=== PATIENT | male | born 1940 | race Caucasian/White ===

== ENCOUNTER 2018-08-12 10:16 | Outpatient (CLI) | payer MEDICARE, OTHER ==
--- NOTE | 2018-08-12 11:41 | RAD ---
ABDOMEN ONE VIEW: History: 77-year-old male with history of renal stones, renal lithiasis. FINDINGS: There is an approximately 0.6 cm diameter rounded opacity overlying the lower pole of the right kidne y, evidence for a right lower pole calculus. There are multiple calcifications within the pelvis, david dence for pelvic phleboliths. No overt ureteral calculus. IMPRESSION: Right lower pole renal calculus. POS: [facility]
--- NOTE | 2018-08-12 12:54 | ULT ---
RENAL ULTRASOUND: History: Nephrolithiasis. Renal calculi. Comparison: None. FINDINGS: Bilaterally, the renal cortex has a normal echotexture. Right kidney measures 10.0 x 5.6 x 5.8 cm. Le ft kidney measures 10.8 x 6.4 x 5.2 cm. Echogenic focus in the left renal cortex measures 0.6 cm, com patible with nephrolithiasis. There is an anechoic focus in the mid to lower portion of the left harper l pelvis compatible with a 1 cm cyst. Bilaterally, no hydronephrosis. Urinary bladder is unremarkable . IMPRESSION: Nonobstructing calcification of the left renal cortex. Bilaterally, no hydronephrosis. POS: [facility]
== END 2018-08-12 10:17 | disposition home or self-care (01) ==
LOC: BICULT 10:16
PROVIDERS: ATTEND Urology
DX: N20.0 Calculus of kidney (principal); N40.0 Benign prostatic hyperplasia without lower urinary tract symptoms; R35.0 Frequency of micturition; Z87.448 Personal history of other diseases of urinary system; N28.89 Other specified disorders of kidney and ureter
CPT/HCPCS: 36415; 74018; 76770; 80048; 81001; 87086

== ENCOUNTER 2018-10-09 13:08 | Outpatient (CLI) | payer MEDICARE, OTHER ==
--- NOTE | 2018-10-09 15:08 | RAD ---
TWO VIEWS CHEST: Date: 10-09-18 Comparison: 02-12-17, 01-22-16 History: Dyspnea. FINDINGS: Heart and mediastinal contours are unchanged when compared to study performed 01-22-16. There is mild i ncreased linear interstitial density. There is no pneumothorax or pleural fluid and no focal consolid ation or alveolar edema. There is multilevel mid thoracic spine disc space narrowing and anterior ost eophyte formation. IMPRESSION: Chronic findings as detailed above. No acute findings are seen. POS: [facility]
== END 2018-10-09 13:09 | disposition home or self-care (01) ==
LOC: RAD 13:08
PROVIDERS: ATTEND Internal Medicine Pulmonary Disease
DX: R06.00 Dyspnea, unspecified (principal); J98.4 Other disorders of lung; M51.34 Other intervertebral disc degeneration, thoracic region; M25.78 Osteophyte, vertebrae
CPT/HCPCS: 71046

== ENCOUNTER 2019-02-10 10:31 | Outpatient (CLI) | payer MEDICARE, OTHER ==
--- NOTE | 2019-02-10 11:27 | ULT ---
BILATERAL RENAL ULTRASOUND: HISTORY: Urinary tract calculi, renal lithiasis. FINDINGS: Comparison is made with the exam of 08/12/2018. The right kidney measures 10.3 cm in length and the left kidney measures 11 cm in length. No hydrone phrosis is seen on either side. There are left parapelvic cysts measuring up to 1.2 cm in the inferi or aspect, stable since the last exam. No shadowing calculi are seen in the kidneys. The urinary bl adder is unremarkable. IMPRESSION: 1. No evidence of high-grade urinary tract obstruction. 2. Left renal cyst. POS: [facility]
== END 2019-02-10 10:32 | disposition home or self-care (01) ==
LOC: BICULT 10:31
PROVIDERS: ATTEND Urology
DX: N20.0 Calculus of kidney (principal); N40.0 Benign prostatic hyperplasia without lower urinary tract symptoms; R31.9 Hematuria, unspecified; N28.1 Cyst of kidney, acquired; Z87.448 Personal history of other diseases of urinary system
CPT/HCPCS: 76770; 81001; 87086

== ENCOUNTER 2019-02-17 08:11 | Outpatient (CLI) | payer MEDICARE, OTHER ==
--- NOTE | 2019-02-17 09:46 | RAD ---
SUPINE ABDOMEN: HISTORY: Renal lithiasis. COMPARISON: 08/12/2018. The rounded calcification overlying the lower pole of the right kidney is again seen. Bowel content obscures both renal outlines and small calculi could be obscured. Phleboliths in the pelvis appear s table. Degenerative changes at the left hip again noted with the right hip prosthesis again noted. IMPRESSION: Calculus overlying the lower pole of the right kidney again noted. Prominent bowel content obscures both urinary tracts. POS: [facility]
== END 2019-02-17 08:12 | disposition home or self-care (01) ==
LOC: RAD 08:11
PROVIDERS: ATTEND Urology
DX: N20.0 Calculus of kidney (principal)
CPT/HCPCS: 74018

== ENCOUNTER 2019-03-04 09:12 | Outpatient (CLI) | payer MEDICARE, OTHER ==
--- NOTE | 2019-03-04 10:17 | CT ---
CT STONE PROTOCOL: HISTORY:Microhematuria. BPH. COMPARISON: 10/06/2015 DISCLAIMER: Absence of oral and IV contrast reduces the sensitivity of the exam particularly for the evaluation of solid organs and bowel. FINDINGS: The lung bases are clear. No free air or free fluid is seen in the abdomen or pelvis. No calcified ga llstones are noted. There is a small hiatal hernia. Calcified granulomas in the spleen and a 5 cm lobulated cyst in the p osterior segment of the right lobe of the liver are stable. Appendix is normal. There is colonic diverticulosis without diverticulitis. The 8 mm calculus in the inferior pole of the right kidney is stable. No calculi are seen in the left kidney, either ureter or the urinary bladder. No hydroureteronephrosis is seen in either side. Evaluation of the pelvis is limited due to streak artifact from patient's right hip arthroplasty. There are vascular calcifications without evidence of aneurysmal dilatation of the abdominal aorta. T here are degenerative changes in the spine. There is a fat-containing left inguinal hernia IMPRESSION: 1. Nonobstructing right renal calculus 2. Small hiatal hernia 3. Calcified splenic granulomata 4. Colonic diverticulosis 5. Hepatic cyst.
== END 2019-03-04 09:13 | disposition home or self-care (01) ==
LOC: BICCT 09:12
PROVIDERS: ATTEND Urology
DX: N40.1 Benign prostatic hyperplasia with lower urinary tract symptoms (principal); R31.29 Other microscopic hematuria; Z79.01 Long term (current) use of anticoagulants; K46.9 Unspecified abdominal hernia without obstruction or gangrene; L92.9 Granulomatous disorder of the skin and subcutaneous tissue, unspecified; K57.30 Diverticulosis of large intestine without perforation or abscess without bleeding; N20.0 Calculus of kidney; K76.89 Other specified diseases of liver
CPT/HCPCS: 74176

== ENCOUNTER 2019-04-08 10:34 | Outpatient (CLI) | payer MEDICARE, OTHER ==
--- NOTE | 2019-04-08 13:28 | ULT ---
EXAM: THYROID ULTRASOUND: 04/08/19 HISTORY: Mass noted on thyroid screening. COMPARISON: None. TECHNIQUE: Sagittal and transverse imaging of the thyroid gland is performed. FINDINGS: Right thyroid lobe measures 3.8 x 1.4 x 2.7 cm. the left thyroid lobe measures 1.7 x 2.3 x 3.1 cm. Th yroid isthmus measures 0.6 cm. There is a solitary hypoechoic nodule in the right thyroid lobe measu ring 0.6 x 0.9 x 0.8 cm. IMPRESSION: Hypoechoic nodule in the right thyroid lobe. TI-RADS level TR4. Follow-up imaging is one year is qi mmended. POS: [facility]
== END 2019-04-08 10:35 | disposition home or self-care (01) ==
LOC: BICULT 10:34
PROVIDERS: ATTEND Family Medicine
DX: E04.1 Nontoxic single thyroid nodule (principal)
CPT/HCPCS: 76536

== ENCOUNTER 2019-08-13 12:11 | Outpatient (CLI) | payer MEDICARE, OTHER ==
--- NOTE | 2019-08-13 13:32 | ULT ---
Exam: Bilateral renal ultrasound HISTORY: Nonischemic kidney disease COMPARISON: 02/10/2019 FINDINGS: Right kidney: Normal cortical echotexture. No hydronephrosis. Right kidney measurements: 10.0 x 5.1 x 4.9 cm. Left kidney: Normal cortical echotexture. No hydronephrosis 1 cm parapelvic cyst in the lower pole. Left kidney measurements 10.0 x 4.9 x 5.9 cm. Urinary bladder: Normal mucosa. IMPRESSION: No hydronephrosis.
== END 2019-08-13 12:12 | disposition home or self-care (01) ==
LOC: BICULT 12:11
PROVIDERS: ATTEND Internal Medicine Nephrology
DX: N18.3 Chronic kidney disease, stage 3 (moderate) (principal)
CPT/HCPCS: 76770

== ENCOUNTER 2019-10-07 08:20 | Outpatient (CLI) | payer MEDICARE, OTHER ==
--- NOTE | 2019-10-07 09:31 | RAD ---
KUB: Date: 10/07/19 HISTORY: Renal calculi. COMPARISON: 02/17/19 exam. FINDINGS: The bowel gas pattern appears nonobstructive. Calculus overlying the lower pole region of the right k idney is again identified. Faint calcifications are seen in the left upper quadrant of the abdomen. I do not see a definitive left-sided calculus. The calcifications within the pelvis appear unchanged. IMPRESSION: Stable lower pole right renal calculus. POS: [facility]
== END 2019-10-07 08:21 | disposition home or self-care (01) ==
LOC: BICRAD 08:20
PROVIDERS: ATTEND Urology
DX: N20.0 Calculus of kidney (principal); N40.0 Benign prostatic hyperplasia without lower urinary tract symptoms; R35.0 Frequency of micturition
CPT/HCPCS: 36415; 74018; 80053; 80061; 81001; 85025

== ENCOUNTER 2020-10-05 14:12 | Outpatient (CLI) | payer MEDICARE, OTHER ==
--- NOTE | 2020-10-05 15:32 | ULT ---
Bilateral renal ultrasound CLINICAL INDICATION: Renal calculi. COMPARISON: 08/13/[address] abdomen on 03/04/2019 FINDINGS: Right kidney: A nonshadowing echogenic focus measuring 1.1 cm is seen in the midportion right kidney. This may represent a prominent vessel. This cannot be confirmed to represent a calculus. This echogenic focus was not seen on prior renal sonogram. An inferior pole right renal calculus was seen on prior CT exam. No renal mass, hydronephrosis, or perinephric fluid collection is seen. The right kidney measures 10 cm x 6.5 cm. Left kidney: Several tiny echogenic foci are seen scattered within the left kidney which do not demon strate posterior shadowing and are likely related to prominent vessels as opposed to a calculi. An approximately 1.2 cm anechoic structure seen midportion left kidney which demonstrates posterior acou stic enhancement and likely represents a small cyst. No solid renal mass or hydronephrosis is seen on the left. No perinephric fluid collection is identified.The left kidney measures 11.1 cm x 5.3 cm. Urinary bladder: Incompletely distended with urinary bladder volume of 84 mL. Urinary bladder has a g rossly normal sonographic appearance for degree of distention. IMPRESSION: 1. No evidence of hydronephrosis. 2. Small left renal cyst. 3. Echogenic foci in each kidney which do not demonstrate posterior shadowing to suggest a renal calc ulus.
--- NOTE | 2020-10-05 15:53 | RAD ---
Abdomen one view HISTORY: Kidney stone. COMPARISON: 10/07/2019. FINDINGS: Bowel gas pattern is nonspecific. Renal outlines predominantly obscured by gas and stool. Projecting over the inferior pole of the right kidney, a 0.7 cm rounded calcification is unchanged in position. Phleboliths projecting over the pelvis are stable. IMPRESSION : Stable radiographic appearance of the right inferior pole renal calculus.
== END 2020-10-05 14:13 | disposition home or self-care (01) ==
LOC: BICULT 14:12
PROVIDERS: ATTEND Urology
DX: N20.0 Calculus of kidney (principal); N28.1 Cyst of kidney, acquired
CPT/HCPCS: 74018; 76770

== ENCOUNTER 2020-11-30 11:44 | Outpatient (CLI) | payer MEDICARE, OTHER ==
--- NOTE | 2020-11-30 12:24 | RAD ---
XR Chest Pa Lat STANDARD History: Dyspnea Comparison: Radiograph 2018 Findings: Lungs are clear. No pneumothorax or effusion. Heart size upper limits of normal. No acute o sseous abnormality. Impression: No acute intrathoracic abnormality.
== END 2020-11-30 11:45 | disposition home or self-care (01) ==
LOC: BICRAD 11:44
PROVIDERS: ATTEND Internal Medicine Pulmonary Disease
DX: R06.00 Dyspnea, unspecified (principal)
CPT/HCPCS: 71046

== ENCOUNTER 2021-06-13 10:20 | Outpatient (CLI) | payer MEDICARE, OTHER | END 2021-06-13 10:21 | disposition home or self-care (01) | LOC: BICRAD 10:20 | PROVIDERS: ATTEND Internal Medicine Pulmonary Disease | DX: R06.00 Dyspnea, unspecified (principal); I70.0 Atherosclerosis of aorta | CPT/HCPCS: 71046 ==

== ENCOUNTER 2021-09-30 08:59 | Outpatient (CLI) | payer MEDICARE, OTHER | END 2021-09-30 09:00 | disposition home or self-care (01) | LOC: RAD 08:59 | PROVIDERS: ATTEND Internal Medicine Pulmonary Disease | DX: R06.00 Dyspnea, unspecified (principal) | CPT/HCPCS: 71046 ==

== ENCOUNTER 2021-10-06 10:50 | Outpatient (CLI) | payer MEDICARE, OTHER | END 2021-10-06 10:51 | disposition home or self-care (01) | LOC: BICRAD 10:50 | PROVIDERS: ATTEND Urology | DX: N20.0 Calculus of kidney (principal); K31.89 Other diseases of stomach and duodenum | CPT/HCPCS: 74018 ==

== ENCOUNTER 2022-03-17 11:38 | Outpatient (CLI) | payer MEDICARE, OTHER ==
[2022-03-17 12:56] LABS: Bilirubin Neg (Negative); Blood, Urine 25 (Negative); Clarity Clear (Clear); Glucose, Urine (Dipstick) Normal (Negative); Ketone, Urine Negative (Negative); Leukocyte Negative (Negative); Nitrite Negative (Negative); Protein, Urine (Dipstick) 30 mg/dl (Neg-Trace); Specific Gravity, Urine 1.015 (1.002-1.036); Urobilinogen Normal mg/dL (Less than 2)
[2022-03-17 13:03] LABS: Bacteria/HPF Rare-Few HPF (None Seen); Mucous/LPF 3+ LPF (<2+); Squamous Epithelial 0-3 HPF (0-3); WBC/HPF 0-3 HPF (0-3)
[2022-03-17 13:06] LABS: Hemoglobin 15.8 g/dL (13.5-17.5); Mean Corpuscular HGB CONC 33.5 g/dL (32.0-36.0); Mean Corpuscular Hemoglobin 30.9 pg (27.0-33.0); Platelet Count 216 10x3/uL (150-450); RBC Distribution Width 14.3 % (11.5-14.5); Red Blood Cell (RBC) Count 5.12 10x6/uL (4.32-5.72)
[2022-03-17 13:39] LABS: Anion Gap 15 mmol/L (10-20); BUN (Urea Nitrogen) 18 mg/dL (8.4-25.7); Calc. Creatinine Clearance 0 mL/min (70-130); Calcium 9.1 mg/dL (7.8-10.44); Carbon Dioxide 26 mmol/L (23-31); Chloride 105 mmol/L (98-107); Glucose 105 mg/dL (83-110); INR-International Normal Ratio 1.2; PTT 30.2 sec (22.0-33.0); Potassium 3.6 mmol/L (3.5-5.1); Prothrombin Time 12.8 sec (9.5-12.1); Sodium 142 mmol/L (136-145)
[2022-03-18 02:04] LABS: SARS-CoV-2 PCR by NAA Not Detected (NotDetected)
== END 2022-03-17 11:39 | disposition home or self-care (01) ==
LOC: LABBT 11:38
PROVIDERS: ATTEND Urology
DX: Z01.818 Encounter for other preprocedural examination (principal); N20.0 Calculus of kidney; Z87.448 Personal history of other diseases of urinary system; I48.0 Paroxysmal atrial fibrillation; E66.9 Obesity, unspecified; R80.8 Other proteinuria; N40.1 Benign prostatic hyperplasia with lower urinary tract symptoms; Z20.822 Contact with and (suspected) exposure to COVID-19
CPT/HCPCS: 80048; 81001; 85027; 85610; 85730; 87086; 93005; U0003; U0005; 93010

== ENCOUNTER 2022-03-22 06:47 | Day surgery (SDC) | payer MEDICARE, OTHER ==
[2022-03-21 16:42] VITALS: BMI 33.4
[2022-03-22] MEDS ORDERED: HYDROmorphone 2 MG/ML VIAL ONE (06:54)
[2022-03-22] MEDS ORDERED: Midazolam HCl 2 mg/2 ml Vial ONE (06:54)
[2022-03-22] MEDS ORDERED: Iopamidol 30 ML ONE (07:20)
[2022-03-22] MEDS ORDERED: SUGAMMADEX SODIUM 200 MG/2 ML VIAL ONE (07:24)
[2022-03-22] MEDS ORDERED: Levofloxacin 500 mg/D5W 100 ml Premix Bag ONE (07:27)
[2022-03-22] MEDS ORDERED: PROPOFOL 200 MG/20 ML VIAL ONE (07:39)
[2022-03-22] MEDS ORDERED: ePHEDrine 50 MG/ML VIAL ONE (07:39)
[2022-03-22] MEDS ORDERED: Ondansetron PF 4 MG/2 ML Vial ONE (07:39)
[2022-03-22] MEDS ORDERED: PHENYLEPHRINE-NS 100 MCG/ML 10 ML SYRINGE ONE (07:39)
[2022-03-22] MEDS ORDERED: Rocuronium Bromide 10 MG/ML (10ML VIAL) ONE (07:39)
[2022-03-22] MEDS ORDERED: Dexamethasone 20 MG/5 ML VIAL ONE (07:39)
[2022-03-22] MEDS ORDERED: Lidocaine 1% PF 5 ML VIAL ONE (07:39)
[2022-03-22] MEDS ORDERED: Phenazopyridine HCl 100 MG TAB ONE (09:04)
[2022-03-22] MEDS ORDERED: Oxybutynin 5 MG TAB ONE (09:04)
[2022-03-22] MEDS ORDERED: Hyoscyamine Sulfate SL 0.125 mg Tablet ONE ×2 (09:38)
[2022-03-22] MEDS ORDERED: HYDROcodone/Acetaminophen 5/325 mg Tablet ONE (11:20)
== END 2022-03-22 12:50 | disposition home or self-care (01) ==
LOC: SDC 06:47
PROVIDERS: ATTEND Urology
PROC: 0TC38ZZ Extirpation of Matter from Right Kidney Pelvis, Via Natural or Artificial Opening Endoscopic (ICD-10-PCS; principal; 2022-03-22)
PROC: 0T768DZ Dilation of Right Ureter with Intraluminal Device, Via Natural or Artificial Opening Endoscopic (ICD-10-PCS; 2022-03-22)
DX: N20.0 Calculus of kidney (principal); N40.0 Benign prostatic hyperplasia without lower urinary tract symptoms; N35.912 Unspecified bulbous urethral stricture, male; E78.5 Hyperlipidemia, unspecified; I10 Essential (primary) hypertension; I48.91 Unspecified atrial fibrillation; E66.01 Morbid (severe) obesity due to excess calories; Z68.33 Body mass index [BMI] 33.0-33.9, adult; Z87.891 Personal history of nicotine dependence; Z79.01 Long term (current) use of anticoagulants; Z79.899 Other long term (current) drug therapy; Z88.2 Allergy status to sulfonamides
CPT/HCPCS: 74018; 74420; C2617; J1100; J1170; J1956; J2250; J2405; J2704; J3490; Q9967

== ENCOUNTER 2022-07-03 06:57 | Outpatient (CLI) | payer MEDICARE, OTHER | END 2022-07-03 06:58 | disposition home or self-care (01) | LOC: BICULT 06:57 | PROVIDERS: ATTEND Urology | DX: N20.0 Calculus of kidney (principal); N28.89 Other specified disorders of kidney and ureter | CPT/HCPCS: 36415; 74018; 76770; 80048; 81001; 87086 ==

== ENCOUNTER 2022-08-25 10:46 | Outpatient (CLI) | payer MEDICARE, OTHER ==
[2022-08-25 12:20] LABS: Bilirubin Neg (Negative); Blood, Urine 150 (Negative); Clarity Clear (Clear); Glucose, Urine (Dipstick) Normal (Negative); Ketone, Urine Negative (Negative); Leukocyte Negative (Negative); Nitrite Negative (Negative); Protein, Urine (Dipstick) 30 mg/dl (Neg-Trace); Urobilinogen Normal mg/dL (Less than 2)
[2022-08-25 12:21] LABS: Hemoglobin 15.5 g/dL (13.5-17.5); Mean Corpuscular HGB CONC 34.3 g/dL (32.0-36.0); Mean Corpuscular Hemoglobin 31.2 pg (27.0-33.0); Mean Corpuscular Volume 90.9 fl (81.2-95.1); Mean Platelet Volume 10.1 fl (7.4-10.4); Platelet Count 229 10x3/uL (150-450); RBC Distribution Width 13.9 % (11.5-14.5); Red Blood Cell (RBC) Count 4.97 10x6/uL (4.32-5.72); White Blood Cell (WBC) Count 7.2 10x3/uL (3.5-10.5)
[2022-08-25 12:42] LABS: Anion Gap 15 mmol/L (10-20); BUN (Urea Nitrogen) 23 mg/dL (8.4-25.7); Calc. Creatinine Clearance 0 mL/min (70-130); Calcium 8.9 mg/dL (7.8-10.44); Carbon Dioxide 22 mmol/L (23-31); Chloride 106 mmol/L (98-107); Estimated GFR 66; Glucose 105 mg/dL (83-110); Potassium 3.9 mmol/L (3.5-5.1); Sodium 139 mmol/L (136-145)
[2022-08-25 12:43] LABS: INR-International Normal Ratio 1.3; PTT 30.8 sec (22.0-33.0); Prothrombin Time 13.5 sec (9.5-12.1)
[2022-08-25 12:59] LABS: Squamous Epithelial 0-3 HPF (0-3); WBC/HPF 0-3 HPF (0-3)
[2022-08-25 13:00] LABS: Bacteria/HPF None Seen HPF (None Seen)
== END 2022-08-25 10:47 | disposition home or self-care (01) ==
LOC: LABBT 10:46
PROVIDERS: ATTEND Urology
DX: Z01.812 Encounter for preprocedural laboratory examination (principal); N40.1 Benign prostatic hyperplasia with lower urinary tract symptoms; N35.816 Other urethral stricture, male, overlapping sites; N20.0 Calculus of kidney; I48.0 Paroxysmal atrial fibrillation; E66.9 Obesity, unspecified; Z87.448 Personal history of other diseases of urinary system
CPT/HCPCS: 80048; 81001; 85027; 85610; 85730; 87086

== ENCOUNTER 2022-10-10 13:18 | Outpatient (CLI) | payer MEDICARE, OTHER | END 2022-10-10 13:19 | disposition home or self-care (01) | LOC: RAD 13:18 | PROVIDERS: ATTEND Internal Medicine | DX: R06.00 Dyspnea, unspecified (principal) | CPT/HCPCS: 71046 ==

== ENCOUNTER 2022-11-28 17:30 | Outpatient (CLI) | payer MEDICARE, OTHER | END 2022-11-28 17:31 | disposition home or self-care (01) | LOC: SLEEPLAB 17:30 | PROVIDERS: ATTEND Internal Medicine | DX: R06.01 Orthopnea (principal); R06.83 Snoring; G47.33 Obstructive sleep apnea (adult) (pediatric); G47.31 Primary central sleep apnea | CPT/HCPCS: 95800 ==

== ENCOUNTER → 2023-01-26 | Outpatient (CLI) | payer MEDICARE, OTHER | LOC: SLEEPLAB 19:00 | PROVIDERS: ATTEND Internal Medicine | DX: G47.33 Obstructive sleep apnea (adult) (pediatric) (principal); E66.9 Obesity, unspecified; K21.9 Gastro-esophageal reflux disease without esophagitis; G47.31 Primary central sleep apnea; Z68.35 Body mass index [BMI] 35.0-35.9, adult | CPT/HCPCS: 95811 ==

== ENCOUNTER 2023-08-18 11:56 | Emergency (ER) | payer MEDICARE, OTHER ==
[2023-08-18] MEDS ORDERED: predniSONE 20 MG TAB ONE (14:09)
[2023-08-18] MEDS ORDERED: Ketorolac Tromethamine 30 MG/ML VIAL ONE (14:09)
[2023-08-18] MEDS ORDERED: HYDROcodone/Acetaminophen 5/325 mg Tablet ONE (14:10)
[2023-08-18 14:36] LABS: Bacteria/HPF None Seen HPF (None Seen); Bilirubin Negative (Negative); Blood, Urine 1+ (Negative); CAUTI Indications for Culture Pelvic or flank pain; Clarity Clear (Clear); Glucose, Urine (Dipstick) Normal (Negative); Ketone, Urine Negative (Negative); Leukocyte Negative Leu/uL (Negative); Nitrite Negative (Negative); Protein, Urine (Dipstick) 100 mg/dL (Neg-Trace); RBC/HPF 0-3 HPF (0-3); Specific Gravity, Urine 1.035 (1.002-1.036); Squamous Epithelial 0-3 HPF (0-3); Urobilinogen Normal mg/dL (Less than 2); WBC/HPF 0-3 HPF (0-3); pH, Urine 5.5 (5.0-9.0)
[2023-08-18 14:37] LABS: Urine Culture Reflex No No
== END 2023-08-18 15:48 | disposition home or self-care (01) ==
LOC: ERS 11:56
DX: M25.552 Pain in left hip (principal); I48.91 Unspecified atrial fibrillation; E78.00 Pure hypercholesterolemia, unspecified; I10 Essential (primary) hypertension; Z87.891 Personal history of nicotine dependence
CPT/HCPCS: 81001; J1885; J7512

== ENCOUNTER 2023-09-28 10:42 | Outpatient (CLI) | payer MEDICARE, OTHER ==
[2023-09-28 13:10] LABS: #Basophils 0.1 10x3/uL (0.0-0.2); #Eosinphils 0.2 10x3/uL (0.0-0.5); #Monocytes 0.7 10x3/uL (0.0-1.1); #Neutrophils 4.3 10x3/uL (1.5-8.4); %Basophils 0.7 % (0.0-2.0); %Eosinophils 2.3 % (0.0-6.0); %Lymphocytes 23.9 % (18.0-47.0); %Monocytes 10.2 % (0.0-10.0); %Neutrophils 62.6 % (40.0-75.0); Hematocrit 48.1 % (38.8-50.0); Hemoglobin 16.3 g/dL (13.5-17.5); Mean Corpuscular HGB CONC 33.9 g/dL (32.0-36.0); Mean Corpuscular Hemoglobin 30.9 pg (27.0-33.0); Mean Corpuscular Volume 91.1 fl (81.2-95.1); Mean Platelet Volume 10.5 fl (7.4-10.4); Platelet Count 243 10x3/uL (150-450); RBC Distribution Width 14.5 % (11.5-14.5); Red Blood Cell (RBC) Count 5.28 10x6/uL (4.32-5.72); White Blood Cell (WBC) Count 6.9 10x3/uL (3.5-10.5)
[2023-09-28 13:14] LABS: INR-International Normal Ratio 1.4; Prothrombin Time 14.8 sec (9.5-12.1)
[2023-09-28 13:26] LABS: Anion Gap 20 mmol/L (10-20); BUN (Urea Nitrogen) 19 mg/dL (8.4-25.7); Calc. Creatinine Clearance 0 mL/min (70-130); Calcium 9.5 mg/dL (7.8-10.44); Carbon Dioxide 22 mmol/L (23-31); Chloride 104 mmol/L (98-107); Estimated GFR 68; Glucose 106 mg/dL (83-110); Sodium 142 mmol/L (136-145)
== END 2023-09-28 10:43 | disposition home or self-care (01) ==
LOC: LABBT 10:42
PROVIDERS: ATTEND Orthopaedic Surgery
DX: Z01.812 Encounter for preprocedural laboratory examination (principal); M16.12 Unilateral primary osteoarthritis, left hip
CPT/HCPCS: 80048; 85025; 85610; 87081

== ENCOUNTER 2023-11-14 20:19 | Inpatient (IN) | payer MEDICARE, OTHER ==
[~2023-11-14 20:19] MED LIST: Iopamidol-370 76% 500 ML MDV (1 ML CHARGE) ONE
[2023-11-14 20:58] LABS: #Monocytes 1.1 thou/uL (0.11-0.59); #Neutrophils 15.3 thou/uL (1.40-6.50); %Basophils 0.2 % (0.0-1.0); %Eosinophils 0.1 % (0.0-10.0); %Lymphocytes 5.6 % (21.0-51.0); %Monocytes 6.4 % (0.0-10.0); Hematocrit 42.4 % (42.0-52.0); Hemoglobin 13.9 g/dL (14.0-18.0); Mean Corpuscular HGB CONC 32.8 g/dL (32.0-36.0); Mean Corpuscular Hemoglobin 30.2 pg (27.0-31.0); Mean Platelet Volume 9.5 fL (7.4-10.4); Platelet Count 252 10x3/uL (130-400); RBC Distribution Width 14.9 % (11.5-14.5); Red Blood Cell (RBC) Count 4.61 mill/uL (4.70-6.10); White Blood Cell (WBC) Count 17.6 10x3/uL (4.8-10.8)
[2023-11-14 21:25] LABS: ALT (SGPT) 14 U/L (8-55); AST (SGOT) 12 U/L (5-34); Albumin 3.9 g/dL (3.4-4.8); Alkaline Phosphatase 52 U/L (40-110); Anion Gap 14 mmol/L (10-20); BUN (Urea Nitrogen) 21 mg/dL (8.4-25.7); Bilirubin, Total 1.1 mg/dL (0.2-1.2); Calc. Creatinine Clearance 0 mL/min (70-130); Calcium 9.2 mg/dL (7.8-10.44); Carbon Dioxide 25 mmol/L (23-31); Chloride 102 mmol/L (98-107); Estimated GFR 61; Globulin 3.5 g/dL (2.4-3.5); Glucose 149 mg/dL (83-110); Lipase 6 U/L (8-78); Potassium 3.4 mmol/L (3.5-5.1); Protein, Total 7.4 g/dL (5.8-8.1); Sodium 138 mmol/L (136-145)
[2023-11-14 21:56] LABS: Bacteria/HPF 4+ HPF (None Seen); Bilirubin Negative (Negative); Blood, Urine 2+ (Negative); Clarity Turbid (Clear); Glucose, Urine (Dipstick) Normal (Negative); Ketone, Urine Negative (Negative); Leukocyte 500 Leu/uL (Negative); Nitrite 2+ (Negative); Protein, Urine (Dipstick) 50 mg/dL (Neg-Trace); Specific Gravity, Urine 1.026 (1.002-1.036); Squamous Epithelial 0-3 HPF (0-3); Urobilinogen Normal mg/dL (Less than 2); WBC/HPF Greater than 50 HPF (0-3); pH, Urine 5.5 (5.0-9.0)
[2023-11-14 21:58] LABS: Urine Culture Reflex Yes Yes
[2023-11-14] MEDS ORDERED: Cefepime 2 GM VIAL ONE (22:27)
[2023-11-14] MEDS ORDERED: Sodium Chloride 0.9% 100 ML ONE (22:28)
[2023-11-15] MEDS ORDERED: HYDROcodone/Acetaminophen 5/325 mg Tablet PO PRN ×2 (00:11)
[2023-11-15] MEDS ORDERED: Acetaminophen 650 MG Suppository PR PRN (00:11)
[2023-11-15] MEDS ORDERED: Acetaminophen 325 MG TAB PO PRN (00:11)
[2023-11-15] MEDS ORDERED: HYDROcodone/Acetaminophen 5/325 mg Tablet PO SCH (00:15)
[2023-11-15 01:29] LABS: Lactic Acid 1.3 mmol/L (0.5-2.2)
[2023-11-15] MEDS: Sodium Chloride 0.9% 1,000 ML IV SCH ×3 (02:43→15:07)
[2023-11-15 04:06] LABS: #Neutrophils 13.2 thou/uL (1.40-6.50); %Basophils 0.2 % (0.0-1.0); %Eosinophils 0.1 % (0.0-10.0); %Lymphocytes 6.9 % (21.0-51.0); %Monocytes 6.3 % (0.0-10.0); %Neutrophils 85.9 % (42.0-75.0); Hematocrit 38.8 % (42.0-52.0); Hemoglobin 12.7 g/dL (14.0-18.0); Mean Corpuscular HGB CONC 32.7 g/dL (32.0-36.0); Mean Corpuscular Hemoglobin 30.2 pg (27.0-31.0); Mean Corpuscular Volume 92.4 fl (78.0-98.0); Mean Platelet Volume 10.1 fL (7.4-10.4); Platelet Count 192 10x3/uL (130-400); RBC Distribution Width 14.9 % (11.5-14.5); White Blood Cell (WBC) Count 15.4 10x3/uL (4.8-10.8)
[2023-11-15 04:29] LABS: ALT (SGPT) 11 U/L (8-55); AST (SGOT) 15 U/L (5-34); Albumin 3.4 g/dL (3.4-4.8); Alkaline Phosphatase 46 U/L (40-110); Anion Gap 14 mmol/L (10-20); BUN (Urea Nitrogen) 18 mg/dL (8.4-25.7); Bilirubin, Total 1.5 mg/dL (0.2-1.2); Calc. Creatinine Clearance 0 mL/min (70-130); Calcium 8.6 mg/dL (7.8-10.44); Carbon Dioxide 24 mmol/L (23-31); Chloride 104 mmol/L (98-107); Estimated GFR 69; Globulin 3.3 g/dL (2.4-3.5); Glucose 127 mg/dL (83-110); Potassium 3.4 mmol/L (3.5-5.1); Protein, Total 6.7 g/dL (5.8-8.1); Sodium 139 mmol/L (136-145)
[2023-11-15] MEDS: Mometasone 100 MCG/Formoterol 5 MCG 120 PUFF INHALER INH SCH ×2 (07:16→18:50)
[2023-11-15] MEDS ORDERED: Enoxaparin 40 MG (0.4 mL) SYRINGE SC SCH (09:00)
[2023-11-15 10:10] VITALS: BMI 33.2
[2023-11-15] MEDS: Hydrochlorothiazide 25 MG TAB PO SCH (11:12)
[2023-11-15] MEDS: cefTRIAXone\\ROCEPHIN 1 GM in Sodium Chloride 0.9% 100 ML IVPB SCH (11:12)
[2023-11-15] MEDS: Atorvastatin Calcium 10 MG TAB PO SCH (21:23)
[2023-11-15] MEDS: Rivaroxaban 10 MG TAB PO SCH (21:23)
[2023-11-16] MEDS: Sodium Chloride 0.9% 1,000 ML IV SCH ×2 (00:14→09:43)
[2023-11-16] MEDS: Mometasone 100 MCG/Formoterol 5 MCG 120 PUFF INHALER INH SCH ×2 (06:59→18:51)
[2023-11-16 08:31] LABS: #Eosinphils 0.2 thou/uL (0.0-0.7); #Monocytes 1.1 thou/uL (0.11-0.59); #Neutrophils 9.9 thou/uL (1.40-6.50); %Basophils 0.2 % (0.0-1.0); %Eosinophils 1.3 % (0.0-10.0); %Lymphocytes 12.3 % (21.0-51.0); %Monocytes 8.2 % (0.0-10.0); %Neutrophils 77.4 % (42.0-75.0); Hematocrit 42.5 % (42.0-52.0); Hemoglobin 13.7 g/dL (14.0-18.0); Mean Corpuscular HGB CONC 32.2 g/dL (32.0-36.0); Mean Platelet Volume 9.9 fL (7.4-10.4); Platelet Count 220 10x3/uL (130-400); RBC Distribution Width 14.8 % (11.5-14.5); Red Blood Cell (RBC) Count 4.57 mill/uL (4.70-6.10); White Blood Cell (WBC) Count 12.9 10x3/uL (4.8-10.8)
[2023-11-16 08:53] LABS: Anion Gap 14 mmol/L (10-20); BUN (Urea Nitrogen) 14 mg/dL (8.4-25.7); Calc. Creatinine Clearance 81 mL/min (70-130); Calcium 8.9 mg/dL (7.8-10.44); Carbon Dioxide 25 mmol/L (23-31); Chloride 102 mmol/L (98-107); Estimated GFR 82; Glucose 99 mg/dL (83-110); Potassium 2.9 mmol/L (3.5-5.1); Sodium 138 mmol/L (136-145)
[2023-11-16] MEDS: cefTRIAXone\\ROCEPHIN 1 GM in Sodium Chloride 0.9% 100 ML IVPB SCH (09:44)
[2023-11-16] MEDS: Hydrochlorothiazide 25 MG TAB PO SCH (09:45)
[2023-11-16] MEDS ORDERED: Potassium Chloride 20 MEQ TAB PO SCH (12:30)
[2023-11-16] MEDS: 1/2 NS w/Potassium 20 mEq 1,000 ML IV SCH (12:48)
[2023-11-16 14:39] LABS: CAUTI Indications for Culture Pelvic or flank pain
[2023-11-16] MEDS: Atorvastatin Calcium 10 MG TAB PO SCH (21:45)
[2023-11-16] MEDS: Rivaroxaban 10 MG TAB PO SCH (21:45)
[2023-11-17] MEDS: 1/2 NS w/Potassium 20 mEq 1,000 ML IV SCH (01:05)
[2023-11-17 04:59] LABS: #Eosinphils 0.2 thou/uL (0.0-0.7); #Monocytes 0.8 thou/uL (0.11-0.59); #Neutrophils 5.7 thou/uL (1.40-6.50); %Basophils 0.2 % (0.0-1.0); %Eosinophils 2.8 % (0.0-10.0); %Lymphocytes 16.2 % (21.0-51.0); %Monocytes 10.2 % (0.0-10.0); %Neutrophils 70.1 % (42.0-75.0); Hematocrit 39.4 % (42.0-52.0); Hemoglobin 12.5 g/dL (14.0-18.0); Mean Corpuscular HGB CONC 31.7 g/dL (32.0-36.0); Mean Corpuscular Hemoglobin 29.6 pg (27.0-31.0); Mean Corpuscular Volume 93.4 fl (78.0-98.0); Mean Platelet Volume 10.4 fL (7.4-10.4); Platelet Count 225 10x3/uL (130-400); RBC Distribution Width 14.7 % (11.5-14.5); Red Blood Cell (RBC) Count 4.22 mill/uL (4.70-6.10); White Blood Cell (WBC) Count 8.2 10x3/uL (4.8-10.8)
[2023-11-17 05:22] LABS: Anion Gap 13 mmol/L (10-20); BUN (Urea Nitrogen) 17 mg/dL (8.4-25.7); Calc. Creatinine Clearance 69 mL/min (70-130); Calcium 8.8 mg/dL (7.8-10.44); Carbon Dioxide 24 mmol/L (23-31); Chloride 104 mmol/L (98-107); Estimated GFR 68; Glucose 105 mg/dL (83-110); Potassium 3.8 mmol/L (3.5-5.1); Sodium 137 mmol/L (136-145)
[2023-11-17] MEDS: Mometasone 100 MCG/Formoterol 5 MCG 120 PUFF INHALER INH SCH (07:44)
[2023-11-17] MEDS ORDERED: Potassium Chloride 10 MEQ TAB PO SCH (08:00)
[2023-11-17] MEDS: cefTRIAXone\\ROCEPHIN 1 GM in Sodium Chloride 0.9% 100 ML IVPB SCH (09:10)
[2023-11-17] MEDS: Hydrochlorothiazide 25 MG TAB PO SCH (09:11)
[2023-11-17 13:29] VITALS: BP 119/84; TEMP 97.7
== END 2023-11-17 15:36 | disposition home or self-care (01) | DRG 872 ==
LOC: ERS 20:19 → ERHOLD 11-15 00:11 → OBSVTOIN 11-15 07:58 → 2SW 11-15 09:18
PROVIDERS: ADMIT Family Medicine; ATTEND Family Medicine
DX: A41.9 Sepsis, unspecified organism (principal); N39.0 Urinary tract infection, site not specified; E78.00 Pure hypercholesterolemia, unspecified; Z96.643 Presence of artificial hip joint, bilateral; I10 Essential (primary) hypertension; E87.6 Hypokalemia; I48.0 Paroxysmal atrial fibrillation; Z98.890 Other specified postprocedural states; Z91.030 Bee allergy status; Z91.09 Other allergy status, other than to drugs and biological substances; Z88.2 Allergy status to sulfonamides; Z79.899 Other long term (current) drug therapy; Z47.1 Aftercare following joint replacement surgery; Z96.642 Presence of left artificial hip joint
CPT/HCPCS: 36415; 74177; 80048; 80053; 81001; 83605; 83690; 85025; 87040; 87077; 87086; 87186; 94664; 96374; J0692; J0696; J3480; J3490; J7050; Q9967

== ENCOUNTER 2025-09-29 11:27 | Outpatient (CLI) | payer MEDICARE, OTHER | END 2025-09-29 11:28 | disposition home or self-care (01) | LOC: ULT 11:27 | PROVIDERS: ATTEND Urology | DX: N28.1 Cyst of kidney, acquired (principal); R80.8 Other proteinuria; N40.1 Benign prostatic hyperplasia with lower urinary tract symptoms; R31.29 Other microscopic hematuria; Z87.442 Personal history of urinary calculi | CPT/HCPCS: 76770 ==